=== PATIENT | female | born 2000 | race African-American/Black ===

== ENCOUNTER 2022-10-03 09:12 | Emergency (ER) | payer MEDICAID ==
[~2022-10-03] VITALS: Ht 167.6 cm; Wt 85.0 kg
[2022-10-03 09:15] VITALS: BP 155/86
[2022-10-03] MEDS ORDERED: DEXAMETHASONE 10 MG/ML VIAL IV ONE (10:15)
[2022-10-03] MEDS ORDERED: ACETAMINOPHEN 325MG TABLET PO ONE (10:15)
[2022-10-03] MEDS ORDERED: ONDANSETRON 4MG ODT PO ONE (10:15)
[2022-10-03] MEDS ORDERED: ONDA4TAB11 PO (10:46)
[2022-10-03] MEDS ORDERED: TOPUD MT (10:46)
== END 2022-10-03 11:11 | disposition home or self-care (01) ==
LOC: ER 09:26
DX: J02.9 Acute pharyngitis, unspecified (principal)
CPT/HCPCS: 81025; 96374; 99283; J1100; Q0162